=== PATIENT | male | born 1955 | race Caucasian/White ===

== ENCOUNTER 2023-02-11 08:03 | Inpatient (IN) | payer MEDICARE, OTHER ==
[~2023-02-11] VITALS: Ht 152.4 cm; Wt 43.2 kg
[~2023-02-11 08:03] MED LIST: METHYLENE BLUE 1% 10 ML VIAL IVP ONE; RINGERS SOLUTION,LACTATED 1,000 ML IV ONE; SODIUM CL IRRIG SOLN BAG 0 ML IRRIG ONE; VANCOMYCIN HCL 1 GM/VIAL ONE
[2023-02-11] MEDS ORDERED: GELATIN SPONGE,ABSORBABLE 50 MM TP ONE (08:06)
[2023-02-11] MEDS ORDERED: GELATIN SPONGE,ABSORBABLE 100 MM TP ONE (08:06)
[2023-02-11] MEDS ORDERED: ETHYL ALCOHOL 62% ANTISEPTIC NASAL SANITIZER 0.6 ML AMPUL NASAL ONE (08:30)
[2023-02-11] MEDS ORDERED: TAMS0.4C34 PO (08:59)
[2023-02-11] MEDS ORDERED: GABA-1181 PO (09:00)
[2023-02-11 09:44] LABS: BASOPHILS % (AUTO) 1.1 % (0.0-2.0); EOSINOPHILS % (AUTO) 4.4 % (1.0-6.0); HEMATOCRIT 37.3 % (41-53); HEMOGLOBIN 12.4 g/dL (13.5-17.5); LYMPHOCYTES # (AUTO) 2.1 K/uL (1.0-4.8); LYMPHOCYTES % (AUTO) 33.3 % (22.0-44.0); MEAN CORPUSCULAR HEMOGLOBIN 29.5 pg (26.0-34.0); MEAN CORPUSCULAR HGB CONC 33.1 G/dL (31.0-37.0); MEAN CORPUSCULAR VOLUME 89 fL (80-100); MONOCYTES # (AUTO) 0.4 K/uL (0.1-1.0); MONOCYTES % (AUTO) 5.6 % (2.0-9.0); NEUTROPHILS # (AUTO) 3.4 K/uL (1.8-7.7); NEUTROPHILS % (AUTO) 55.6 % (40.0-70.0); PLATELET COUNT (AUTO) 485 K/uL (150-450); RED BLOOD CELL COUNT(AUTO) 4.18 MIL/uL (4.50-5.90); RED CELL DISTRIBUTION WIDTH 17.3 % (11.5-14.5); WHITE BLOOD COUNT (AUTO) 6.2 K/uL (4.5-11.0)
[2023-02-11 09:45] LABS: ANION GAP 7 mmol/L (8-16); CALCIUM, TOTAL 9.7 mg/dL (8.8-10.5); CARBON DIOXIDE 28 mmol/L (22-29); CHLORIDE 100 mmol/L (98-107); CREATININE 0.36 mg/dL (0.60-1.30); GLOMERULAR FILTR. RATE CALC > 60 mL/min (>60); GLUCOSE,RANDOM 115 mg/dL (70-110); POTASSIUM 4.1 mmol/L (3.5-5.1); SODIUM SERUM 135 mmol/L (136-145); UREA NITROGEN, BLOOD 27 mg/dL (7-18)
[2023-02-11 10:00] LABS: PROTHROMBIN TIME 10.4 SEC (9.4-11.6)
[2023-02-11] MEDS ORDERED: HEPA500018 SQ (10:24)
[2023-02-11] MEDS ORDERED: ZINC50CA3 PO (10:24)
[2023-02-11] MEDS ORDERED: SENN-338 PO (10:24)
[2023-02-11] MEDS ORDERED: DOCU-412 PO (10:24)
[2023-02-11] MEDS ORDERED: DAPA1TAB5 PO (10:24)
[2023-02-11] MEDS ORDERED: FERR325T27 PO (10:24)
[2023-02-11] MEDS ORDERED: AMIN30LI28 PO (10:24)
[2023-02-11] MEDS ORDERED: ASCO500 PO (10:24)
[2023-02-11] MEDS ORDERED: INSLAN SQ (10:24)
[2023-02-11] MEDS ORDERED: INSNOV SQ ×2 (10:24)
[2023-02-11] MEDS ORDERED: MULT-248 PO (10:24)
[2023-02-11] MEDS ORDERED: 0.9% SODIUM CHLORIDE 10 ML VIAL IVP ONE (12:00)
[2023-02-11] MEDS ORDERED: ACETAMINOPHEN/ISO-OSM 1000 MG/100 ML BOTTLE IV ONE (12:00)
[2023-02-11] MEDS ORDERED: KETOROLAC TROMETHAMINE 60 MG/2 ML VIAL IM ONE (12:00)
[2023-02-11] MEDS ORDERED: EPHEDrine SULFATE 50 MG/ML VIAL IM ONE (12:00)
[2023-02-11] MEDS ORDERED: ROCURONIUM BROMIDE 10 MG/ML 5 ML VIAL IVP ONE (12:00)
[2023-02-11] MEDS ORDERED: FentaNYL CITRATE PF 100 MCG/2 ML VIAL IV ONE (12:00)
[2023-02-11] MEDS ORDERED: MIDAZOLAM HCL 2 MG/2 ML VIAL IVP ONE (12:00)
[2023-02-11] MEDS ORDERED: MORPHINE SULFATE/PF 0.5 MG/ML 10 ML AMP IVP ONE (12:00)
[2023-02-11] MEDS ORDERED: CeFAZolin SODIUM 1 GM VIAL IVP ONE (12:00)
[2023-02-11] MEDS ORDERED: PROPOFOL 1% 20 ML VIAL IVP ONE (12:00)
[2023-02-11] MEDS ORDERED: ONDANSETRON HCL 4 MG/2 ML VIAL IVP ONE (12:00)
[2023-02-11] MEDS ORDERED: SUGAMMADEX SODIUM 200 MG/2 ML VIAL IVP ONE (12:00)
[2023-02-11] MEDS ORDERED: LIDOCAINE/PF 2% 5 ML VIAL IM ONE (12:00)
[2023-02-11] MEDS ORDERED: DEXAMETHASONE SOD PHOS 4 MG/ML VIAL IVP ONE (12:00)
[2023-02-11] MEDS ORDERED: RINGERS SOLUTION,LACTATED 1,000 ML IV ONE (12:28)
[2023-02-11] MEDS ORDERED: OxyCODONE HCL/ACETAMINOPHEN 5-325 MG TABLET PO PRN ×2 (13:00→14:15)
[2023-02-11] MEDS ORDERED: MORPHINE SULFATE 2 MG/ML SYRINGE IVP PRN (14:15)
[2023-02-11] MEDS ORDERED: ACETAMINOPHEN 325 MG TABLET PO PRN (14:15)
[2023-02-11] MEDS ORDERED: ONDANSETRON HCL 4 MG/2 ML VIAL IVP PRN (14:15)
[2023-02-11] MEDS ORDERED: DEXTROSE 50%-WATER 25 GM/50 ML SYRINGE IVP PRN (14:15)
[2023-02-11 14:43] VITALS: BP 108/49; PULSE 64; RESP 18; TEMP 97.4
[2023-02-11 16:10] VITALS: BP 90/52; PULSE 63; RESP 18
[2023-02-11] MEDS: HEPARIN SODIUM,PORCINE 5,000 UNITS/ML VIAL SQ SCH (16:15)
[2023-02-11] MEDS: CYCLOBENZAPRINE HCL 10 MG TABLET PO SCH ×2 (16:15→20:37)
[2023-02-11 16:47] LABS: GLUCOMETER DEV NAME(LOC) 5S.2C; GLUCOSE,POINT OF CARE 141 MG/DL (70-110)
[2023-02-11] MEDS: CeFAZolin 2 GM/DEXTROSE 50 ML IV SCH (18:03)
[2023-02-11 20:01] VITALS: BP 102/54; PULSE 60; RESP 18; TEMP 97.7
[2023-02-11] MEDS: DOCUSATE SODIUM 100 MG CAPSULE PO SCH (20:36)
[2023-02-11] MEDS ORDERED: HEPARIN SODIUM,PORCINE 5,000 UNITS/ML VIAL SQ SCH (21:00)
[2023-02-11 21:47] LABS: APPEARANCE,URINE TURBID (CLEAR); BILIRUBIN,URINE NEGATIVE (NEGATIVE); COLOR,URINE YELLOW (YELLOW); GLUCOSE, URINE (UA) >=1000 mg/dL (NEGATIVE); KETONES,URINE 40-60 mg/dL (NEGATIVE); LEUKOCYTE ESTERASE ,URINE LARGE (NEGATIVE); NITRATE,URINE POSITIVE (NEGATIVE); OCCULT BLOOD,URINE NEGATIVE (NEGATIVE); PROTEIN,URINE 30-70 mg/dL (NEGATIVE); SPECIFIC GRAVITIY, URINE 1.035 (1.003-1.030); UROBILINOGEN,URINE <=1.0 mg/dL (<=1.0)
[2023-02-11] MEDS: INSULIN LISPRO 100 UNITS/ML SQ PRN (21:57)
[2023-02-11 22:44] LABS: BACTERIA,URINE Moderate /HPF (None Seen); RBC,URINE None Seen /HPF (0-2); SQUAMOUS EPITHELIAL CELL,UR None Seen /LPF (None Seen); WBC,URINE 26-50 /HPF (0-5)
[2023-02-12 00:02] VITALS: BP 102/52; PULSE 58; RESP 18; TEMP 97.9
[2023-02-12 00:11] LABS: GLUCOMETER DEV NAME(LOC) 5S.1B; GLUCOSE,POINT OF CARE 200 MG/DL (70-110)
[2023-02-12] MEDS: HEPARIN SODIUM,PORCINE 5,000 UNITS/ML VIAL SQ SCH ×4 (00:22→23:20)
[2023-02-12] MEDS: CeFAZolin 2 GM/DEXTROSE 50 ML IV SCH ×2 (01:51→11:48)
[2023-02-12 05:05] VITALS: BP 130/60; PULSE 60; RESP 18; TEMP 98.1
[2023-02-12 07:09] VITALS: BP 109/58; PULSE 65; RESP 18; TEMP 98.8
[2023-02-12] MEDS: DOCUSATE SODIUM 100 MG CAPSULE PO SCH ×2 (08:38→21:02)
[2023-02-12] MEDS: MULTIVITAMINS WITH MINERALS, THERAPEUTIC TABLET PO SCH (08:38)
[2023-02-12] MEDS: CYCLOBENZAPRINE HCL 10 MG TABLET PO SCH ×3 (08:39→21:02)
[2023-02-12] MEDS: FAMOTIDINE 20 MG TABLET PO SCH (08:40)
[2023-02-12 11:05] LABS: BASOPHILS % (AUTO) 0.4 % (0.0-2.0); EOSINOPHILS % (AUTO) 1.7 % (1.0-6.0); HEMATOCRIT 31.5 % (41-53); HEMOGLOBIN 10.4 g/dL (13.5-17.5); LYMPHOCYTES # (AUTO) 2.3 K/uL (1.0-4.8); LYMPHOCYTES % (AUTO) 26.9 % (22.0-44.0); MEAN CORPUSCULAR HEMOGLOBIN 29.3 pg (26.0-34.0); MEAN CORPUSCULAR HGB CONC 32.9 G/dL (31.0-37.0); MEAN CORPUSCULAR VOLUME 89 fL (80-100); MONOCYTES # (AUTO) 0.5 K/uL (0.1-1.0); MONOCYTES % (AUTO) 5.8 % (2.0-9.0); NEUTROPHILS # (AUTO) 5.6 K/uL (1.8-7.7); NEUTROPHILS % (AUTO) 65.2 % (40.0-70.0); PLATELET COUNT (AUTO) 412 K/uL (150-450); RED BLOOD CELL COUNT(AUTO) 3.54 MIL/uL (4.50-5.90); RED CELL DISTRIBUTION WIDTH 17.4 % (11.5-14.5); WHITE BLOOD COUNT (AUTO) 8.6 K/uL (4.5-11.0)
[2023-02-12] MEDS: INSULIN LISPRO 100 UNITS/ML SQ PRN ×2 (11:51→21:01)
[2023-02-12 12:00] VITALS: BP 124/74; PULSE 64; RESP 18; TEMP 98
[2023-02-12 17:42] VITALS: BP 130/63; PULSE 66; RESP 18; TEMP 98
[2023-02-12 17:51] LABS: GLUCOMETER DEV NAME(LOC) 5N.2C; GLUCOSE,POINT OF CARE 118 MG/DL (70-110)
[2023-02-12 17:52] LABS: GLUCOMETER DEV NAME(LOC) 5N.2C; GLUCOSE,POINT OF CARE 169 MG/DL (70-110)
[2023-02-12 19:45] VITALS: BP 113/61; PULSE 70; RESP 18; TEMP 98.2
[2023-02-13 01:46] LABS: GLUCOMETER DEV NAME(LOC) 5N.1C; GLUCOSE,POINT OF CARE 169 MG/DL (70-110)
[2023-02-13 01:46] LABS: GLUCOMETER DEV NAME(LOC) 5N.1C; GLUCOSE,POINT OF CARE 119 MG/DL (70-110)
[2023-02-13 04:55] VITALS: BP 110/60; PULSE 70; RESP 20; TEMP 98.1
[2023-02-13 05:56] LABS: GLUCOMETER DEV NAME(LOC) 6S.1B; GLUCOSE,POINT OF CARE 117 MG/DL (70-110)
[2023-02-13] MEDS: FAMOTIDINE 20 MG TABLET PO SCH (08:24)
[2023-02-13] MEDS: DOCUSATE SODIUM 100 MG CAPSULE PO SCH ×2 (08:24→20:09)
[2023-02-13] MEDS: CYCLOBENZAPRINE HCL 10 MG TABLET PO SCH ×3 (08:24→20:09)
[2023-02-13] MEDS: MULTIVITAMINS WITH MINERALS, THERAPEUTIC TABLET PO SCH (08:24)
[2023-02-13] MEDS: HEPARIN SODIUM,PORCINE 5,000 UNITS/ML VIAL SQ SCH ×3 (08:24→23:54)
[2023-02-13] MEDS: INSULIN LISPRO 100 UNITS/ML SQ PRN ×2 (11:36→17:25)
[2023-02-13 11:51] LABS: GLUCOMETER DEV NAME(LOC) 6S.1B; GLUCOSE,POINT OF CARE 162 MG/DL (70-110)
[2023-02-13 15:45] VITALS: BP 108/54; PULSE 68; RESP 20; TEMP 98.3
[2023-02-13 18:01] LABS: GLUCOMETER DEV NAME(LOC) 6S.1B; GLUCOSE,POINT OF CARE 181 MG/DL (70-110)
[2023-02-13 19:22] VITALS: BP 115/61; PULSE 67; RESP 20; TEMP 99.1
[2023-02-13 20:31] LABS: GLUCOMETER DEV NAME(LOC) 6S.1B; GLUCOSE,POINT OF CARE 129 MG/DL (70-110)
[2023-02-14 04:05] VITALS: BP 125/66; PULSE 68; RESP 20; TEMP 98.3
[2023-02-14] MEDS: INSULIN LISPRO 100 UNITS/ML SQ PRN ×4 (05:48→20:45)
[2023-02-14 06:51] LABS: BASOPHILS % (AUTO) 0.7 % (0.0-2.0); EOSINOPHILS % (AUTO) 3.3 % (1.0-6.0); HEMATOCRIT 34.2 % (41-53); HEMOGLOBIN 11.6 g/dL (13.5-17.5); LYMPHOCYTES # (AUTO) 2.3 K/uL (1.0-4.8); LYMPHOCYTES % (AUTO) 33.5 % (22.0-44.0); MEAN CORPUSCULAR HEMOGLOBIN 30.1 pg (26.0-34.0); MEAN CORPUSCULAR VOLUME 88 fL (80-100); MONOCYTES # (AUTO) 0.4 K/uL (0.1-1.0); MONOCYTES % (AUTO) 6.5 % (2.0-9.0); NEUTROPHILS # (AUTO) 3.8 K/uL (1.8-7.7); PLATELET COUNT (AUTO) 472 K/uL (150-450); RED BLOOD CELL COUNT(AUTO) 3.87 MIL/uL (4.50-5.90); RED CELL DISTRIBUTION WIDTH 17.2 % (11.5-14.5); WHITE BLOOD COUNT (AUTO) 6.8 K/uL (4.5-11.0)
[2023-02-14 07:06] LABS: ANION GAP 8 mmol/L (8-16); CALCIUM, TOTAL 9.7 mg/dL (8.8-10.5); CARBON DIOXIDE 27 mmol/L (22-29); CHLORIDE 100 mmol/L (98-107); CREATININE 0.46 mg/dL (0.60-1.30); GLOMERULAR FILTR. RATE CALC > 60 mL/min (>60); GLUCOSE,RANDOM 150 mg/dL (70-110); POTASSIUM 4.2 mmol/L (3.5-5.1); SODIUM SERUM 135 mmol/L (136-145); UREA NITROGEN, BLOOD 24 mg/dL (7-18)
[2023-02-14 07:06] LABS: GLUCOMETER DEV NAME(LOC) 6N.2B; GLUCOSE,POINT OF CARE 165 MG/DL (70-110)
[2023-02-14 07:30] VITALS: BP 120/70; PULSE 78; RESP 20; TEMP 98.7
[2023-02-14] MEDS: MULTIVITAMINS WITH MINERALS, THERAPEUTIC TABLET PO SCH (08:08)
[2023-02-14] MEDS: CYCLOBENZAPRINE HCL 10 MG TABLET PO SCH ×3 (08:08→20:40)
[2023-02-14] MEDS: HEPARIN SODIUM,PORCINE 5,000 UNITS/ML VIAL SQ SCH ×3 (08:08→23:33)
[2023-02-14] MEDS: DOCUSATE SODIUM 100 MG CAPSULE PO SCH ×2 (08:08→20:40)
[2023-02-14] MEDS: FAMOTIDINE 20 MG TABLET PO SCH (08:08)
[2023-02-14] MEDS: PANTOPRAZOLE SODIUM 40 MG DR TABLET PO SCH ×2 (11:08→20:40)
[2023-02-14 13:57] LABS: GLUCOMETER DEV NAME(LOC) 6N.2B; GLUCOSE,POINT OF CARE 227 MG/DL (70-110)
[2023-02-14 15:10] VITALS: BP 114/52; PULSE 70; RESP 20; TEMP 98.5
[2023-02-14 17:22] LABS: GLUCOMETER DEV NAME(LOC) 6N.2B; GLUCOSE,POINT OF CARE 185 MG/DL (70-110)
[2023-02-14 19:30] VITALS: BP 106/60; PULSE 76; RESP 16; TEMP 97.7
[2023-02-14 23:36] LABS: GLUCOMETER DEV NAME(LOC) 6N.2B; GLUCOSE,POINT OF CARE 217 MG/DL (70-110)
[2023-02-15 04:00] VITALS: BP 143/69; PULSE 72; RESP 16; TEMP 98.4
[2023-02-15] MEDS: INSULIN LISPRO 100 UNITS/ML SQ PRN ×3 (05:25→17:10)
[2023-02-15 05:56] LABS: GLUCOMETER DEV NAME(LOC) 6N.2B; GLUCOSE,POINT OF CARE 143 MG/DL (70-110)
[2023-02-15 07:59] LABS: BASOPHILS % (AUTO) 0.9 % (0.0-2.0); EOSINOPHILS % (AUTO) 2.1 % (1.0-6.0); HEMATOCRIT 34.9 % (41-53); HEMOGLOBIN 11.8 g/dL (13.5-17.5); LYMPHOCYTES # (AUTO) 1.8 K/uL (1.0-4.8); LYMPHOCYTES % (AUTO) 25.5 % (22.0-44.0); MEAN CORPUSCULAR HEMOGLOBIN 29.8 pg (26.0-34.0); MEAN CORPUSCULAR HGB CONC 33.7 G/dL (31.0-37.0); MEAN CORPUSCULAR VOLUME 89 fL (80-100); MONOCYTES # (AUTO) 0.4 K/uL (0.1-1.0); MONOCYTES % (AUTO) 5.8 % (2.0-9.0); NEUTROPHILS # (AUTO) 4.7 K/uL (1.8-7.7); NEUTROPHILS % (AUTO) 65.7 % (40.0-70.0); PLATELET COUNT (AUTO) 439 K/uL (150-450); RED BLOOD CELL COUNT(AUTO) 3.95 MIL/uL (4.50-5.90); WHITE BLOOD COUNT (AUTO) 7.2 K/uL (4.5-11.0)
[2023-02-15 08:00] LABS: ANION GAP 7 mmol/L (8-16); CALCIUM, TOTAL 9.7 mg/dL (8.8-10.5); CARBON DIOXIDE 27 mmol/L (22-29); CHLORIDE 98 mmol/L (98-107); CREATININE 0.42 mg/dL (0.60-1.30); GLOMERULAR FILTR. RATE CALC > 60 mL/min (>60); GLUCOSE,RANDOM 161 mg/dL (70-110); POTASSIUM 4.3 mmol/L (3.5-5.1); SODIUM SERUM 132 mmol/L (136-145); UREA NITROGEN, BLOOD 17 mg/dL (7-18)
[2023-02-15 08:16] VITALS: BP 109/67; PULSE 72; RESP 18; TEMP 98
[2023-02-15] MEDS: HEPARIN SODIUM,PORCINE 5,000 UNITS/ML VIAL SQ SCH ×2 (09:11→16:35)
[2023-02-15] MEDS: PANTOPRAZOLE SODIUM 40 MG DR TABLET PO SCH (09:11)
[2023-02-15] MEDS: CYCLOBENZAPRINE HCL 10 MG TABLET PO SCH ×2 (09:11→16:34)
[2023-02-15] MEDS: DOCUSATE SODIUM 100 MG CAPSULE PO SCH (09:11)
[2023-02-15] MEDS: MULTIVITAMINS WITH MINERALS, THERAPEUTIC TABLET PO SCH (09:11)
[2023-02-15] MEDS ORDERED: CYCL-448 PO (10:28)
[2023-02-15] MEDS ORDERED: HEPA500018 SQ (10:30)
[2023-02-15] MEDS ORDERED: PANT-31 PO (11:01)
[2023-02-15] MEDS ORDERED: MULT-248 PO (11:01)
[2023-02-15] MEDS ORDERED: ACET-2247 PO (11:02)
[2023-02-15] MEDS ORDERED: INSU100V SQ (11:03)
[2023-02-15] MEDS ORDERED: PERCT PO (11:04)
[2023-02-15 14:16] LABS: GLUCOMETER DEV NAME(LOC) 4E.2; GLUCOSE,POINT OF CARE 164 MG/DL (70-110)
[2023-02-15 17:24] VITALS: BP 100/72; PULSE 79; RESP 20; TEMP 98.2
[2023-02-15 19:36] LABS: GLUCOMETER DEV NAME(LOC) 4E.2; GLUCOSE,POINT OF CARE 170 MG/DL (70-110)
== END 2023-02-15 19:08 | DRG 579 ==
LOC: 5S 08:03 → EDSTATUS 11:30 → 5S 13:30 → 6N 02-12 21:31
PROVIDERS: ADMIT Surgery Plastic and Reconstructive Surgery; ATTEND Surgery Plastic and Reconstructive Surgery
PROC: 0QB10ZZ Excision of Sacrum, Open Approach (ICD-10-PCS; 2023-02-11)
PROC: 0QBS0ZZ Excision of Coccyx, Open Approach (ICD-10-PCS; principal; 2023-02-11 10:30)
DX: L89.154 Pressure ulcer of sacral region, stage 4 (principal); E43 Unspecified severe protein-calorie malnutrition; R53.2 Functional quadriplegia; R64 Cachexia; Z68.1 Body mass index [BMI] 19.9 or less, adult; M86.8X8 Other osteomyelitis, other site; E11.9 Type 2 diabetes mellitus without complications; Z79.4 Long term (current) use of insulin; Z79.84 Long term (current) use of oral hypoglycemic drugs; Z79.899 Other long term (current) drug therapy; Z88.8 Allergy status to other drugs, medicaments and biological substances; Z83.3 Family history of diabetes mellitus
CPT/HCPCS: 80048; 81001; 82271; 82962; 85025; 85610; 85730; 87070; 87075; 87081; 87086; 87186; 87205; 88304; 88311; 93005; J0131; J0690; J1100; J1644; J1885; J2250; J2274; J2405; J2704; J3010; J3370; J3490; J7120; Q9967; Q9968